=== PATIENT | female | born 1965 | race African-American/Black ===

== ENCOUNTER 2016-10-06 14:26 | Emergency (ER) | payer OTHER | END 2016-10-06 15:13 | disposition left against medical advice (07) | LOC: ER 15:13 | DX: Z53.21 Procedure and treatment not carried out due to patient leaving prior to being seen by health care provider (principal) ==

== ENCOUNTER 2016-10-16 18:17 | Emergency (ER) | payer OTHER | END 2016-10-16 20:30 | disposition left against medical advice (07) | LOC: ER 18:18 | DX: Z53.21 Procedure and treatment not carried out due to patient leaving prior to being seen by health care provider (principal) ==

== ENCOUNTER 2016-11-27 23:22 | Inpatient (IN) | payer OTHER ==
[~2016-11-27] VITALS: Ht 152.4 cm; Wt 54.4 kg
[2016-11-28 06:33] LABS: HEMATOCRIT. 22.9 % (36.0-48.0); HEMOGLOBIN. 7.4 g/dL (12.0-16.0); MEAN CORPUSCULAR HEMOGLOBIN 22.6 pg (28.0-32.0); MEAN CORPUSCULAR VOLUME 70.2 fL (81.0-99.0); MEAN PLATELET VOLUME 7.7 fl (7.4-10.4); PLATELET 392 x1000/uL (130-400); RED BLOOD CELL COUNT 3.27 mill/uL (4.2-5.4)
[2016-11-28 06:39] LABS: CHLORIDE 93 mEq/L (98-107)
[2016-11-28 06:48] LABS: CARBON DIOXIDE 29 mEq/L (21-32)
[2016-11-28 07:13] LABS: CLARITY URINE CLOUDY (CLEAR); COLOR URINE DARK YELLOW (YELLOW); GLUCOSE URINE NEGATIVE (NEGATIVE); KETONES URINE NEGATIVE (NEGATIVE); LEUKOCYTE ESTERASE URINE 1+ (NEGATIVE); NITRITE URINE NEGATIVE (NEGATIVE); OCCULT BLOOD URINE TRACE (NEGATIVE); PROTEIN URINE TRACE (NEGATIVE)
[2016-11-28] MEDS ORDERED: POTASSIUM CHLORIDE 20MEQ/PACKET PO ONE (07:45)
[2016-11-28] MEDS ORDERED: MAGNESIUM GLUCONATE 500MG TABLET PO ONE (08:00)
[2016-11-28] MEDS ORDERED: VANCOMYCIN 1 G PREMIX 200 ML IV SCH (09:00)
[2016-11-28] MEDS ORDERED: SODIUM CHLORIDE 0.9% 1,000 ML IV ONE (09:00)
[2016-11-28 09:47] LABS: PLATELET ESTIMATE NORMAL
[2016-11-28] MEDS ORDERED: MAGNESIUM/ALUMINUM HYDROXIDE/SIMETHICONE 30ML UDC PO PRN (18:45)
[2016-11-28] MEDS ORDERED: LORAZEPAM 2MG/ML CPJ IV PRN (18:45)
[2016-11-28] MEDS ORDERED: HYDROCODONE/ACETAMINOPHEN 10/325MG TABLET PO PRN (18:45)
[2016-11-28] MEDS ORDERED: ONDANSETRON HCL 4MG/2ML VIAL IV PRN (18:45)
[2016-11-28] MEDS ORDERED: HYDROCODONE/ACETAMINOPHEN 5/325MG TABLET PO PRN (18:45)
[2016-11-28] MEDS ORDERED: DOCUSATE SODIUM 100MG CAPSULE PO PRN (18:45)
[2016-11-28] MEDS ORDERED: IPRATROPIUM/ALBUTEROL 0.5-3(2.5)MG/3ML NEB INH PRN (18:45)
[2016-11-28] MEDS ORDERED: CLONIDINE 0.1MG TABLET PO PRN (18:45)
[2016-11-28] MEDS ORDERED: MVI, ADULT NO.1 10 ML, FOLIC ACID 1 MG, THIAMINE HCL 100 MG in SODIUM CHLORIDE 0.9% 1,0... IV ONE ×4 (19:30)
[2016-11-28 20:00] VITALS: BP 116/75
[2016-11-28 20:55] VITALS: BP 116/75
[2016-11-28] MEDS: PIPERACILLIN/TAZ 3.375G PREMIX 50 ML IV SCH (21:09)
[2016-11-28 21:50] VITALS: BP 119/65
[2016-11-28] MEDS: VANCOMYCIN 1250MG in DEXTROSE 5% WATER 250ML IV SCH (22:09)
[2016-11-28] MEDS: ACETAMINOPHEN 325MG TABLET PO PRN (22:14)
[2016-11-28 23:18] LABS: CREATINE KINASE 31 IU/L (26-192); TROPONIN I < 0.02 ng/mL (0.00-0.04)
[2016-11-29] VITALS (7 sets, daily range): BP systolic 103–124; BP diastolic 65–78
[2016-11-29] MEDS: PIPERACILLIN/TAZ 3.375G PREMIX 50 ML IV SCH ×3 (04:54→21:46)
[2016-11-29] MEDS: VANCOMYCIN 1250MG in DEXTROSE 5% WATER 250ML IV SCH ×2 (05:29→18:38)
[2016-11-29 06:23] LABS: CARBON DIOXIDE 30 mEq/L (21-32); CHLORIDE 102 mEq/L (98-107); CREATINE KINASE 29 IU/L (26-192); HDL CHOLESTEROL 17 mg/dL (40-59); LDL CHOLESTEROL 51 mg/dL (5-100); T4 FREE 1.37 ng/dL (0.76-1.46); TROPONIN I < 0.02 ng/mL (0.00-0.04)
[2016-11-29 06:41] LABS: HEMATOCRIT. 23.2 % (36.0-48.0); HEMOGLOBIN. 7.3 g/dL (12.0-16.0); MEAN CORPUSCULAR HEMOGLOBIN 22.4 pg (28.0-32.0); MEAN PLATELET VOLUME 7.8 fl (7.4-10.4); PLATELET 396 x1000/uL (130-400); RED BLOOD CELL COUNT 3.27 mill/uL (4.2-5.4)
[2016-11-29 06:42] LABS: BG BASE EXCESS 4.5 mmol/L (-2.0-2.0); BG CARBOXYHEMOGLOBIN 1.1 % (0.5-1.5); BG DEOXYHEMOGLOBIN 8.3 % (0.0-5.0); BG HCO3 ACT 28.2 mmol/L (22.0-26.0); BG METHEMOGLOBIN 0.2 % (0.0-1.5); BG OXYGEN SATURATION 91.6 % (92.0-98.5); BG OXYHEMOGLOBIN 90.4 % (94.0-97.0); BG PCO2 38.5 mmHg (35.0-45.0); BG PH 7.483 (7.350-7.450); BG PO2 64.5 mmHg (75.0-100.0); BG SAMPLE SITE RIGHT BRACHIAL; BG TOTAL HEMOGLOBIN 8.3 g/dL (12.0-18.0); BG VENT MODE ROOM AIR
[2016-11-29 09:31] LABS: *AMPHETAMINES SCREEN URINE NEGATIVE (NEGATIVE); *BARBITURATES SCREEN URINE NEGATIVE (NEGATIVE); *BENZODIAZEPINES SCREEN URINE NEGATIVE (NEGATIVE); *COCAINE SCREEN URINE PRESUMTIVE POSITIVE (NEGATIVE); CANNABINOID URINE SCREEN NEGATIVE (NEGATIVE); METHADONE URINE SCREEN NEGATIVE (NEGATIVE); OPIATES URINE SCREEN NEGATIVE (NEGATIVE); PHENCYCLIDINE URINE SCREEN NEGATIVE (NEGATIVE)
[2016-11-29 11:18] LABS: CLARITY URINE CLEAR (CLEAR); COLOR URINE YELLOW (YELLOW); GLUCOSE URINE NEGATIVE (NEGATIVE); KETONES URINE NEGATIVE (NEGATIVE); LEUKOCYTE ESTERASE URINE NEGATIVE (NEGATIVE); NITRITE URINE NEGATIVE (NEGATIVE); OCCULT BLOOD URINE NEGATIVE (NEGATIVE); PH URINE 7.5 (4.5-8.0); PROTEIN URINE NEGATIVE (NEGATIVE); SPECIFIC GRAVITY URINE 1.014 (1.005-1.030)
[2016-11-29 11:52] LABS: PLATELET ESTIMATE NORMAL
[2016-11-29] MEDS ORDERED: POTASSIUM CHLORIDE 20MEQ TABLET SR PO NR (12:45)
[2016-11-29] MEDS ORDERED: POTASSIUM CHLORIDE INJ 40 MEQ in SODIUM CHLORIDE 0.9% 250 ML IV NR (14:00)
[2016-11-30] VITALS: BP 124/76
[2016-11-30] MEDS: ACETAMINOPHEN 325MG TABLET PO PRN ×2 (00:48→20:29)
[2016-11-30] MEDS: VANCOMYCIN 1250MG in DEXTROSE 5% WATER 250ML IV SCH ×2 (01:36→09:44)
[2016-11-30 04:00] VITALS: BP 114/67
[2016-11-30] MEDS: PIPERACILLIN/TAZ 3.375G PREMIX 50 ML IV SCH ×3 (04:12→20:28)
[2016-11-30 08:00] VITALS: BP 117/70
[2016-11-30 08:49] LABS: HEMOGLOBIN. 7.5 g/dL (12.0-16.0); MEAN CORPUSCULAR HEMOGLOBIN 22.2 pg (28.0-32.0); MEAN CORPUSCULAR VOLUME 71.4 fL (81.0-99.0); MEAN PLATELET VOLUME 7.4 fl (7.4-10.4); PLATELET 445 x1000/uL (130-400); RED BLOOD CELL COUNT 3.37 mill/uL (4.2-5.4); RED CELL DISTRIBUTION WIDTH 18.1 % (11.6-14.6)
[2016-11-30 08:57] LABS: CARBON DIOXIDE 31 mEq/L (21-32); CHLORIDE 103 mEq/L (98-107); VANCOMYCIN TROUGH 13.4 ug/mL (5.0-10.0)
[2016-11-30] MEDS ORDERED: POTASSIUM CHLORIDE 20MEQ TABLET SR PO ONE (11:15)
[2016-11-30 12:00] VITALS: BP 113/59
[2016-11-30 13:05] LABS: PLATELET ESTIMATE INCREASED
[2016-11-30 15:22] LABS: TOTAL IRON BINDING CAPACITY 150 ug/dL (250-450)
[2016-11-30 16:00] VITALS: BP 105/59
[2016-11-30] MEDS: FERROUS SULFATE 325MG TABLET PO SCH (17:48)
[2016-11-30] MEDS: VANCOMYCIN 1500MG in DEXTROSE 5% WATER 250ML IV SCH (17:48)
[2016-11-30 20:00] VITALS: BP 101/68
[2016-11-30] MEDS: ASCORBIC ACID 500 MG TABLET PO SCH (20:29)
[2016-12-01] VITALS (7 sets, daily range): BP systolic 94–109; BP diastolic 46–70
[2016-12-01] MEDS: VANCOMYCIN 1500MG in DEXTROSE 5% WATER 250ML IV SCH ×2 (02:06→09:23)
[2016-12-01] MEDS: PIPERACILLIN/TAZ 3.375G PREMIX 50 ML IV SCH ×2 (03:58→12:41)
[2016-12-01 05:43] LABS: MEAN CORPUSCULAR HEMOGLOBIN 22.9 pg (28.0-32.0); PLATELET 477 x1000/uL (130-400); RED BLOOD CELL COUNT 3.48 mill/uL (4.2-5.4); RED CELL DISTRIBUTION WIDTH 18.3 % (11.6-14.6)
[2016-12-01 05:50] LABS: CARBON DIOXIDE 28 mEq/L (21-32); CHLORIDE 104 mEq/L (98-107)
[2016-12-01] MEDS: ASCORBIC ACID 500 MG TABLET PO SCH ×2 (09:23→21:08)
[2016-12-01] MEDS: FERROUS SULFATE 325MG TABLET PO SCH ×3 (09:23→17:03)
[2016-12-01 14:06] LABS: PLATELET ESTIMATE INCREASED
[2016-12-01] MEDS: NAFCILLIN SODIUM 2,000 MG in SODIUM CHLORIDE 0.9% 100 ML IV SCH (15:15)
[2016-12-02] VITALS: BP 101/52
[2016-12-02] MEDS: NAFCILLIN SODIUM 2,000 MG in SODIUM CHLORIDE 0.9% 100 ML IV SCH ×4 (00:08→18:21)
[2016-12-02 04:00] VITALS: BP 101/56
[2016-12-02 06:57] LABS: HEMATOCRIT. 23.5 % (36.0-48.0); HEMOGLOBIN. 7.3 g/dL (12.0-16.0); MEAN CORPUSCULAR HEMOGLOBIN 22.4 pg (28.0-32.0); MEAN CORPUSCULAR VOLUME 71.9 fL (81.0-99.0); MEAN PLATELET VOLUME 7.3 fl (7.4-10.4); PLATELET 585 x1000/uL (130-400); RED BLOOD CELL COUNT 3.27 mill/uL (4.2-5.4); RED CELL DISTRIBUTION WIDTH 18.5 % (11.6-14.6)
[2016-12-02 07:09] LABS: CHLORIDE 103 mEq/L (98-107)
[2016-12-02 07:26] LABS: CARBON DIOXIDE 27 mEq/L (21-32)
[2016-12-02 08:00] VITALS: BP 102/69
[2016-12-02] MEDS: FERROUS SULFATE 325MG TABLET PO SCH ×3 (08:14→18:21)
[2016-12-02] MEDS: ASCORBIC ACID 500 MG TABLET PO SCH ×2 (08:14→21:11)
[2016-12-02 12:00] VITALS: BP 99/59
[2016-12-02 16:04] VITALS: BP 133/78
[2016-12-02 20:00] VITALS: BP_SYST 103; BP_SYST 99; BP_DIAS 51; BP_DIAS 66
[2016-12-03] VITALS: BP_SYST 107; BP_SYST 112; BP_DIAS 64; BP_DIAS 65
[2016-12-03] MEDS: NAFCILLIN SODIUM 2,000 MG in SODIUM CHLORIDE 0.9% 100 ML IV SCH ×5 (00:11→23:13)
[2016-12-03 04:00] VITALS: BP 98/51
[2016-12-03 06:37] LABS: EOSINOPHILS % 1.4 % (0.0-5.0); HEMATOCRIT. 23.8 % (36.0-48.0); HEMOGLOBIN. 7.4 g/dL (12.0-16.0); LYMPHOCYTES % 14.3 % (20.0-50.0); MEAN CORPUSCULAR HEMOGLOBIN 22.6 pg (28.0-32.0); MEAN CORPUSCULAR VOLUME 72.6 fL (81.0-99.0); MONOCYTES % 5.8 % (2.0-8.0); NEUTROPHILS % 77.5 % (40.0-76.0); PLATELET 609 x1000/uL (130-400); RED BLOOD CELL COUNT 3.27 mill/uL (4.2-5.4); RED CELL DISTRIBUTION WIDTH 18.3 % (11.6-14.6)
[2016-12-03 06:48] LABS: CARBON DIOXIDE 30 mEq/L (21-32); CHLORIDE 104 mEq/L (98-107)
[2016-12-03 08:03] VITALS: BP 101/55
[2016-12-03] MEDS: FERROUS SULFATE 325MG TABLET PO SCH ×3 (08:04→17:34)
[2016-12-03] MEDS: ASCORBIC ACID 500 MG TABLET PO SCH ×2 (08:04→23:13)
[2016-12-03 11:07] LABS: PLATELET ESTIMATE INCREASED
[2016-12-03 12:00] VITALS: BP 109/61
[2016-12-03 16:00] VITALS: BP 101/64
[2016-12-03 20:00] VITALS: BP 92/47
[2016-12-04] VITALS: BP 128/68
[2016-12-04 04:00] VITALS: BP 110/68
[2016-12-04 05:20] LABS: HEMATOCRIT. 23.9 % (36.0-48.0); HEMOGLOBIN. 7.3 g/dL (12.0-16.0); MEAN CORPUSCULAR HEMOGLOBIN 22.5 pg (28.0-32.0); MEAN CORPUSCULAR VOLUME 73.8 fL (81.0-99.0); MEAN PLATELET VOLUME 6.8 fl (7.4-10.4); PLATELET 620 x1000/uL (130-400); RED BLOOD CELL COUNT 3.24 mill/uL (4.2-5.4); RED CELL DISTRIBUTION WIDTH 18.5 % (11.6-14.6)
[2016-12-04 05:37] LABS: CARBON DIOXIDE 31 mEq/L (21-32); CHLORIDE 103 mEq/L (98-107)
[2016-12-04] MEDS: NAFCILLIN SODIUM 2,000 MG in SODIUM CHLORIDE 0.9% 100 ML IV SCH ×4 (06:16→23:28)
[2016-12-04 08:00] VITALS: BP 115/75
[2016-12-04] MEDS: FERROUS SULFATE 325MG TABLET PO SCH ×3 (08:47→17:24)
[2016-12-04] MEDS: ASCORBIC ACID 500 MG TABLET PO SCH ×2 (08:47→21:11)
[2016-12-04 11:32] LABS: PLATELET ESTIMATE MARKEDLY INCREASED
[2016-12-04 12:00] VITALS: BP 112/78
[2016-12-04 16:00] VITALS: BP 110/74
[2016-12-04 20:00] VITALS: BP 104/60
[2016-12-05] VITALS: BP 107/61
[2016-12-05 04:00] VITALS: BP 100/50
[2016-12-05] MEDS: NAFCILLIN SODIUM 2,000 MG in SODIUM CHLORIDE 0.9% 100 ML IV SCH ×4 (05:20→23:20)
[2016-12-05] MEDS: ASCORBIC ACID 500 MG TABLET PO SCH ×2 (07:51→20:19)
[2016-12-05] MEDS: FERROUS SULFATE 325MG TABLET PO SCH ×3 (07:51→17:26)
[2016-12-05 08:00] VITALS: BP 111/74
[2016-12-05 12:00] VITALS: BP 107/65
[2016-12-05 15:25] LABS: HEMATOCRIT. 24.7 % (36.0-48.0); HEMOGLOBIN. 7.6 g/dL (12.0-16.0); MEAN CORPUSCULAR VOLUME 74.5 fL (81.0-99.0); MEAN PLATELET VOLUME 6.7 fl (7.4-10.4); PLATELET 668 x1000/uL (130-400); RED BLOOD CELL COUNT 3.32 mill/uL (4.2-5.4); RED CELL DISTRIBUTION WIDTH 19.3 % (11.6-14.6)
[2016-12-05 15:45] LABS: CHLORIDE 104 mEq/L (98-107)
[2016-12-05 15:53] LABS: CARBON DIOXIDE 28 mEq/L (21-32)
[2016-12-05 16:00] VITALS: BP 105/51
[2016-12-05 17:19] LABS: ATYPICAL LYMPHOCYTES 2
[2016-12-05 17:21] LABS: PLATELET ESTIMATE MARKEDLY INCREASED
[2016-12-05 20:00] VITALS: BP 101/59
[2016-12-06 00:05] VITALS: BP 113/64
[2016-12-06 04:00] VITALS: BP 102/63
[2016-12-06] MEDS: NAFCILLIN SODIUM 2,000 MG in SODIUM CHLORIDE 0.9% 100 ML IV SCH ×4 (05:35→23:17)
[2016-12-06] MEDS: ASCORBIC ACID 500 MG TABLET PO SCH ×2 (07:58→20:47)
[2016-12-06] MEDS: FERROUS SULFATE 325MG TABLET PO SCH ×3 (07:59→17:18)
[2016-12-06 08:00] VITALS: BP 119/63
[2016-12-06 12:00] VITALS: BP 106/58
[2016-12-06 16:00] VITALS: BP 117/56
[2016-12-06 20:00] VITALS: BP 103/68
[2016-12-07 00:04] VITALS: BP 104/57
[2016-12-07 04:00] VITALS: BP 108/60
[2016-12-07] MEDS: NAFCILLIN SODIUM 2,000 MG in SODIUM CHLORIDE 0.9% 100 ML IV SCH ×3 (05:21→19:19)
[2016-12-07 08:00] VITALS: BP 114/64
[2016-12-07] MEDS: FERROUS SULFATE 325MG TABLET PO SCH ×3 (09:17→19:19)
[2016-12-07] MEDS: ASCORBIC ACID 500 MG TABLET PO SCH ×2 (09:17→21:41)
[2016-12-07 12:00] VITALS: BP 105/60
[2016-12-07 16:00] VITALS: BP 106/62
[2016-12-07 20:00] VITALS: BP 104/67
[2016-12-08] VITALS (11 sets, daily range): BP systolic 100–112; BP diastolic 56–81
[2016-12-08] MEDS: NAFCILLIN SODIUM 2,000 MG in SODIUM CHLORIDE 0.9% 100 ML IV SCH ×4 (00:52→18:55)
[2016-12-08 07:55] LABS: HEMATOCRIT. 22.8 % (36.0-48.0); HEMOGLOBIN. 7.4 g/dL (12.0-16.0); MEAN CORPUSCULAR HEMOGLOBIN 24.6 pg (28.0-32.0); MEAN CORPUSCULAR VOLUME 75.8 fL (81.0-99.0); MEAN PLATELET VOLUME 6.4 fl (7.4-10.4); PLATELET 611 x1000/uL (130-400); RED BLOOD CELL COUNT 3.01 mill/uL (4.2-5.4); RED CELL DISTRIBUTION WIDTH 22.1 % (11.6-14.6)
[2016-12-08 08:00] LABS: CHLORIDE 102 mEq/L (98-107)
[2016-12-08 08:22] LABS: CARBON DIOXIDE 29 mEq/L (21-32)
[2016-12-08] MEDS: FERROUS SULFATE 325MG TABLET PO SCH ×3 (09:04→18:54)
[2016-12-08] MEDS: ASCORBIC ACID 500 MG TABLET PO SCH ×2 (09:04→22:09)
[2016-12-08 14:05] LABS: LYMPHOCYTES % 31.5 % (20.0-50.0); MONOCYTES % 8.5 % (2.0-8.0); NEUTROPHILS % 58.2 % (40.0-76.0)
[2016-12-08 14:06] LABS: BASOPHILS % 0.5 % (0.0-2.0); EOSINOPHILS % 1.3 % (0.0-5.0)
[2016-12-09] VITALS: BP 104/65
[2016-12-09] MEDS: NAFCILLIN SODIUM 2,000 MG in SODIUM CHLORIDE 0.9% 100 ML IV SCH ×4 (01:42→18:03)
[2016-12-09 04:00] VITALS: BP 119/76
[2016-12-09 07:26] LABS: BASOPHILS % 0.9 % (0.0-2.0); EOSINOPHILS % 1.9 % (0.0-5.0); HEMOGLOBIN. 8.6 g/dL (12.0-16.0); LYMPHOCYTES % 31.1 % (20.0-50.0); MEAN CORPUSCULAR HEMOGLOBIN 24.3 pg (28.0-32.0); MEAN CORPUSCULAR VOLUME 76.2 fL (81.0-99.0); MEAN PLATELET VOLUME 6.3 fl (7.4-10.4); MONOCYTES % 7.3 % (2.0-8.0); NEUTROPHILS % 58.8 % (40.0-76.0); PLATELET 602 x1000/uL (130-400); RED BLOOD CELL COUNT 3.55 mill/uL (4.2-5.4); RED CELL DISTRIBUTION WIDTH 22.1 % (11.6-14.6)
[2016-12-09 08:00] VITALS: BP 106/73
[2016-12-09 08:20] LABS: CHLORIDE 103 mEq/L (98-107)
[2016-12-09 08:40] LABS: CARBON DIOXIDE 26 mEq/L (21-32)
[2016-12-09] MEDS: FERROUS SULFATE 325MG TABLET PO SCH ×3 (09:06→18:03)
[2016-12-09] MEDS: ASCORBIC ACID 500 MG TABLET PO SCH ×2 (09:06→23:25)
[2016-12-09 12:00] VITALS: BP 113/76
[2016-12-09 16:00] VITALS: BP 118/67
[2016-12-09 20:00] VITALS: BP 102/62
[2016-12-10] VITALS: BP 104/62
[2016-12-10] MEDS: NAFCILLIN SODIUM 2,000 MG in SODIUM CHLORIDE 0.9% 100 ML IV SCH ×4 (01:57→19:43)
[2016-12-10 04:00] VITALS: BP_SYST 102; BP_SYST 128; BP_DIAS 68; BP_DIAS 80
[2016-12-10 08:00] VITALS: BP 100/60
[2016-12-10] MEDS: FERROUS SULFATE 325MG TABLET PO SCH ×3 (08:53→18:41)
[2016-12-10] MEDS: ASCORBIC ACID 500 MG TABLET PO SCH ×2 (08:53→21:10)
[2016-12-10 12:04] VITALS: BP 113/66
[2016-12-10] MEDS ORDERED: LIDOCAINE HCL 1% 20ML VIAL (Pyxis) INJ ONE (15:05)
[2016-12-10] MEDS ORDERED: SODIUM BICARBONATE 4% (2.4MEQ) 5ML VIAL IV ONE (15:05)
[2016-12-10 16:00] VITALS: BP 102/65
[2016-12-10 19:50] VITALS: BP 103/55
[2016-12-11] VITALS: BP 107/70
[2016-12-11] MEDS: NAFCILLIN SODIUM 2,000 MG in SODIUM CHLORIDE 0.9% 100 ML IV SCH ×4 (01:12→20:45)
[2016-12-11 04:00] VITALS: BP 109/62
[2016-12-11 06:34] LABS: BASOPHILS % 0.4 % (0.0-2.0); EOSINOPHILS % 2.2 % (0.0-5.0); HEMATOCRIT. 26.8 % (36.0-48.0); HEMOGLOBIN. 8.5 g/dL (12.0-16.0); LYMPHOCYTES % 36.2 % (20.0-50.0); MEAN CORPUSCULAR HEMOGLOBIN 24.8 pg (28.0-32.0); MEAN CORPUSCULAR VOLUME 77.8 fL (81.0-99.0); MEAN PLATELET VOLUME 6.5 fl (7.4-10.4); MONOCYTES % 7.3 % (2.0-8.0); NEUTROPHILS % 53.9 % (40.0-76.0); PLATELET 556 x1000/uL (130-400); RED BLOOD CELL COUNT 3.44 mill/uL (4.2-5.4); RED CELL DISTRIBUTION WIDTH 24.2 % (11.6-14.6)
[2016-12-11 06:38] LABS: CARBON DIOXIDE 29 mEq/L (21-32); CHLORIDE 105 mEq/L (98-107)
[2016-12-11 08:00] VITALS: BP 113/70
[2016-12-11] MEDS: ASCORBIC ACID 500 MG TABLET PO SCH ×2 (08:54→22:26)
[2016-12-11] MEDS: FERROUS SULFATE 325MG TABLET PO SCH ×3 (08:54→17:20)
[2016-12-11 12:00] VITALS: BP 119/70
[2016-12-11 16:00] VITALS: BP 100/66
[2016-12-11 20:00] VITALS: BP 103/72
[2016-12-12] VITALS: BP 107/65
[2016-12-12] MEDS: NAFCILLIN SODIUM 2,000 MG in SODIUM CHLORIDE 0.9% 100 ML IV SCH ×4 (01:59→19:23)
[2016-12-12 04:00] VITALS: BP 110/68
[2016-12-12 06:37] LABS: BASOPHILS % 0.7 % (0.0-2.0); EOSINOPHILS % 2.9 % (0.0-5.0); HEMATOCRIT. 25.5 % (36.0-48.0); HEMOGLOBIN. 8.1 g/dL (12.0-16.0); LYMPHOCYTES % 32.6 % (20.0-50.0); MEAN CORPUSCULAR HEMOGLOBIN 24.7 pg (28.0-32.0); MEAN CORPUSCULAR VOLUME 78.1 fL (81.0-99.0); MEAN PLATELET VOLUME 6.6 fl (7.4-10.4); MONOCYTES % 9.1 % (2.0-8.0); NEUTROPHILS % 54.7 % (40.0-76.0); PLATELET 492 x1000/uL (130-400); RED BLOOD CELL COUNT 3.26 mill/uL (4.2-5.4); RED CELL DISTRIBUTION WIDTH 24.9 % (11.6-14.6)
[2016-12-12 06:52] LABS: CARBON DIOXIDE 29 mEq/L (21-32); CHLORIDE 107 mEq/L (98-107)
[2016-12-12 08:00] VITALS: BP 110/73
[2016-12-12] MEDS: ASCORBIC ACID 500 MG TABLET PO SCH ×2 (09:27→19:23)
[2016-12-12] MEDS: FERROUS SULFATE 325MG TABLET PO SCH ×3 (09:27→19:23)
[2016-12-12 12:00] VITALS: BP 106/62
[2016-12-12 16:00] VITALS: BP 116/71
[2016-12-12 20:00] VITALS: BP 104/65
[2016-12-13] VITALS: BP 110/69
[2016-12-13] MEDS: NAFCILLIN SODIUM 2,000 MG in SODIUM CHLORIDE 0.9% 100 ML IV SCH ×3 (00:55→13:22)
[2016-12-13 04:00] VITALS: BP 114/70
[2016-12-13 06:26] LABS: BASOPHILS % 0.7 % (0.0-2.0); EOSINOPHILS % 2.9 % (0.0-5.0); HEMATOCRIT. 25.8 % (36.0-48.0); HEMOGLOBIN. 8.1 g/dL (12.0-16.0); LYMPHOCYTES % 36.4 % (20.0-50.0); MEAN CORPUSCULAR HEMOGLOBIN 24.8 pg (28.0-32.0); MEAN CORPUSCULAR VOLUME 78.4 fL (81.0-99.0); MEAN PLATELET VOLUME 6.5 fl (7.4-10.4); PLATELET 463 x1000/uL (130-400); RED BLOOD CELL COUNT 3.29 mill/uL (4.2-5.4); RED CELL DISTRIBUTION WIDTH 25.1 % (11.6-14.6)
[2016-12-13 06:31] LABS: CHLORIDE 106 mEq/L (98-107)
[2016-12-13 06:36] LABS: CARBON DIOXIDE 25 mEq/L (21-32)
[2016-12-13 08:00] VITALS: BP 124/75
[2016-12-13] MEDS: ASCORBIC ACID 500 MG TABLET PO SCH (08:34)
[2016-12-13] MEDS: FERROUS SULFATE 325MG TABLET PO SCH ×2 (08:34→13:22)
[2016-12-13 12:00] VITALS: BP 109/75
[2016-12-13 14:18] LABS: PLATELET ESTIMATE INCREASED
[2016-12-13 14:30] VITALS: BP 109/75
[2016-12-13 15:59] VITALS: BP 105/67
== END 2016-12-13 17:41 | disposition home health service (06) | DRG 721 ==
LOC: ER 23:32 → 6EST 11-28 09:17 → EDBEDREQ 11-28 09:26 → CANRESERV 11-28 09:50 → ENRESERV 11-28 09:50 → EDBEDREQSVC 11-28 11:23 → ENRESERV 11-28 15:30 → 7WST 11-28 21:40
PROVIDERS: ADMIT Internal Medicine; ATTEND Internal Medicine
PROC: 30233N1 Transfusion of Nonautologous Red Blood Cells into Peripheral Vein, Percutaneous Approach (ICD-10-PCS; principal; 2016-12-08)
PROC: 02HV33Z Insertion of Infusion Device into Superior Vena Cava, Percutaneous Approach (ICD-10-PCS; 2016-12-10)
PROC: B5181ZA Fluoroscopy of Superior Vena Cava using Low Osmolar Contrast, Guidance (ICD-10-PCS; 2016-12-10)
PROC: B548ZZA Ultrasonography of Superior Vena Cava, Guidance (ICD-10-PCS; 2016-12-10)
PROC: 02PYX3Z Removal of Infusion Device from Great Vessel, External Approach (ICD-10-PCS; 2016-12-10)
DX: T80.211A Bloodstream infection due to central venous catheter, initial encounter (principal); J96.00 Acute respiratory failure, unspecified whether with hypoxia or hypercapnia; A41.01 Sepsis due to Methicillin susceptible Staphylococcus aureus; E43 Unspecified severe protein-calorie malnutrition; E87.1 Hypo-osmolality and hyponatremia; D50.9 Iron deficiency anemia, unspecified; F14.10 Cocaine abuse, uncomplicated; N39.0 Urinary tract infection, site not specified; F17.210 Nicotine dependence, cigarettes, uncomplicated; E87.6 Hypokalemia; Y84.8 Other medical procedures as the cause of abnormal reaction of the patient, or of later complication, without mention of misadventure at the time of the procedure; E87.5 Hyperkalemia; Z86.61 Personal history of infections of the central nervous system; Z68.23 Body mass index [BMI] 23.0-23.9, adult; Y92.89 Other specified places as the place of occurrence of the external cause
CPT/HCPCS: 36415; 36569; 36600; 71020; 76937; 77001; 80048; 80053; 80061; 80202; 80305; 81001; 81003; 82270; 82375; 82550; 82805; 83540; 83550; 83605; 83690; 83735; 84132; 84439; 84443; 84484; 85025; 86850; 86900; 86920; 87040; 87070; 87077; 87186; 93005; 93306; 93970; 96365; 96366; 97110; 97116; 97162; 99285; C1725; C1893; J2543; J3370; J3411; J3480; J3490; J7030; J7040; J7050; J7060; P9016

== ENCOUNTER 2023-02-12 17:51 | Emergency (ER) | payer OTHER ==
[~2023-02-12] VITALS: Ht 165.1 cm; Wt 57.4 kg
[2023-02-12] MEDS ORDERED: MAGNESIUM/ALUMINUM HYDROXIDE/SIMETHICONE 30ML UDC PO ONE (21:45)
[2023-02-12] MEDS ORDERED: DIPHENOXYLATE/ATROPINE 2.5/0.025MG TABLET PO ONE (21:45)
[2023-02-12] MEDS ORDERED: PANTOPRAZOLE 40MG DR TABLET PO ONE (21:45)
[2023-02-12 22:00] VITALS: O2SAT 99
[2023-02-13 03:58] LABS: BASOPHILS % 0.4 % (0.0-2.0); EOSINOPHILS % 4.2 % (0.0-5.0); HEMATOCRIT. 41.7 % (36.0-48.0); HEMOGLOBIN. 13.6 g/dL (12.0-16.0); LYMPHOCYTES % 35.9 % (20.0-50.0); MEAN CORPUSCULAR HEMOGLOBIN 27.4 pg (28.0-32.0); MEAN CORPUSCULAR HGB CONC 32.6 g/dL (31.0-37.0); MEAN CORPUSCULAR VOLUME 83.9 fL (81.0-99.0); MEAN PLATELET VOLUME 7.4 fl (7.4-10.4); MONOCYTES % 13.2 % (2.0-8.0); NEUTROPHILS % 46.3 % (40.0-76.0); PLATELET 265 x1000/uL (130-400); RED BLOOD CELL COUNT 4.97 mill/uL (4.2-5.4); RED CELL DISTRIBUTION WIDTH 14.2 % (11.6-14.6); WHITE BLOOD COUNT 5.3 x1000/uL (4.5-11.0)
[2023-02-13] MEDS ORDERED: CEPH250C2 MT (04:01)
[2023-02-13] MEDS ORDERED: DIPH25CA83 MT (04:01)
[2023-02-13 04:03] LABS: CHLORIDE 105 mEq/L (98-107); INDEX HEMOLYSI 1 (1-3); INDEX ICTERIC 1 (1-4); INDEX LIPEMIC 1 (1-3); POTASSIUM 3.4 mEq/L (3.5-5.1); SODIUM 139 mEq/L (136-145)
[2023-02-13 04:04] LABS: CALCIUM 10.5 mg/dL (8.5-10.1)
[2023-02-13 04:08] LABS: CARBON DIOXIDE 31 mEq/L (21-32); CREATININE 0.7 mg/dL (0.6-1.3); GLUCOSE 127 mg/dL (70-105); UREA NITROGEN BLOOD 14 mg/dL (7-21)
[2023-02-13 04:30] VITALS: BP 111/74; PULSE 64; RESP 16; TEMP 98.7
== END 2023-02-13 04:30 | disposition home or self-care (01) ==
LOC: ER 17:51
DX: S90.561A Insect bite (nonvenomous), right ankle, initial encounter (principal); Z98.890 Other specified postprocedural states; W57.XXXA Bitten or stung by nonvenomous insect and other nonvenomous arthropods, initial encounter; Y93.89 Activity, other specified; Y92.89 Other specified places as the place of occurrence of the external cause; Y99.8 Other external cause status
CPT/HCPCS: 36415; 73610; 80048; 85025; 99284

== ENCOUNTER 2023-12-15 15:05 | Emergency (ER) | payer OTHER ==
[~2023-12-15] VITALS: Ht 165.1 cm; Wt 73.0 kg
[~2023-12-15 15:05] MED LIST: CEPH250C2 MT; DIPH25CA83 MT
[2023-12-15 15:10] VITALS: BP 137/75; PULSE 90; RESP 20; TEMP 98.2; O2SAT 99
[2023-12-15] MEDS: IBUPROFEN 600MG TABLET PO ONE (16:30)
[2023-12-15] MEDS ORDERED: DICL100G58 TP (16:55)
== END 2023-12-15 17:03 | disposition home or self-care (01) ==
LOC: ER 15:05
DX: S83.91XA Sprain of unspecified site of right knee, initial encounter (principal); M25.462 Effusion, left knee; F19.90 Other psychoactive substance use, unspecified, uncomplicated; Z98.890 Other specified postprocedural states; X58.XXXA Exposure to other specified factors, initial encounter; Y93.89 Activity, other specified; Y92.89 Other specified places as the place of occurrence of the external cause; Y99.8 Other external cause status
CPT/HCPCS: 73562; 99283